=== PATIENT | male | born 1985 | race Caucasian/White ===

== ENCOUNTER 2017-01-03 10:51 | Emergency (ER) | payer OTHER ==
[~2017-01-03] VITALS: Ht 180.3 cm; Wt 80.9 kg
[~2017-01-03 10:51] MED LIST: BENADRYL50 MG PO; BUSPIRONE HCL15 MG; DEPAKOTE ER (E500 M1; KEFLEX500 MG PO; LOSARTAN POTASS50 MG PO; MOTRIN400 M1; SEPTRA DS TABL1 EACH; SEROQUEL400 MG; ZOLOFT100 MG
[2017-01-03 11:59] LABS: POINT-OF-CARE METER ID UU14100415
[2017-01-03 12:05] LABS: EOSINOPHIL (%) 0.6 % (0-5); HEMATOCRIT 41.4 % (38.0-50.0); IMMATURE GRANULOCYTE (%) 0.4 % (0.0-0.7); INSTRUMENT ABS NEUTROPHIL CT 5.2 K/uL; LYMPHOCYTE COUNT 1.1 K/uL (1.0-2.8); MCH 30.8 PG (29.0-34.0); MCHC 34.5 G/DL (30.0-36.0); MEAN PLAT.VOLUME 8.8 uM^3 (9.0-12.4); MONOCYTE (%) 8.5 % (3-12); MONOCYTE COUNT 0.6 K/uL (0-0.8); NEUTROPHIL (%) 74.1 % (45-76); NEUTROPHIL COUNT 5.2 K/uL (1.8-6.4); PLATELET COUNT 256 K/uL (156-360); RBC DIS.WIDTH-CV 12.1 % (11.8-14.6); RBC DIS.WIDTH-SD 39.3 % (39-53); RED BLOOD COUNT 4.65 M/uL (4.00-5.50)
[2017-01-03 12:18] LABS: CHLORIDE 106 mEq/L (99-109); POTASSIUM 4.1 mEq/L (3.7-5.4); SODIUM 139 mEq/L (136-147)
[2017-01-03 12:19] LABS: GLUCOSE 128 mg/dL (70-99)
[2017-01-03 12:21] LABS: ANION GAP 9 MEQ/L (2-14)
[2017-01-03 12:23] LABS: GFR ESTIMATE (CALCULATED) > 59 mL/min/
[2017-01-03 12:24] LABS: UREA NITROGEN (BUN) 13 mg/dL (9-23)
[2017-01-03 13:49] LABS: ADD MIUA? YES; BILIRUBIN NEGATIVE; BLOOD SMALL; COLOR YELLOW ((YELLOW)); GLUCOSE (STRIP) 150; KETONES NEGATIVE; LEUKOCYTES NEGATIVE; NITRITE NEGATIVE; PROTEIN (STRIP) 30; SPECIFIC GRAVITY 1.016 (1.000-1.030); UROBILINOGEN 0.2 MG/DL (0.2-1.0)
[2017-01-03 13:59] LABS: BACTERIA NONE SEEN /HPF; EPITHELIAL CELLS NONE SEEN /HPF; HYALINE CASTS 0-5 /LPF; MUCUS TRACE /LPF; RED BLOOD CELLS 0-5 /HPF (0-5); UCUL ADDED? NO; WHITE BLOOD CELLS 0-5 /HPF (0-5)
[2017-01-03 14:21] VITALS: BP 143/83
== END 2017-01-03 14:26 | disposition home or self-care (01) ==
LOC: EME 10:51
PROVIDERS: Emergency Medicine
DX: G40.409 Other generalized epilepsy and epileptic syndromes, not intractable, without status epilepticus (principal); G80.9 Cerebral palsy, unspecified; F84.0 Autistic disorder
CPT/HCPCS: 71010; 80048; 81003; 82948; 85025; 99281; 99285